=== PATIENT | female | born 1950 | race Caucasian/White ===

== ENCOUNTER 2016-12-11 05:52 | Day surgery (SDC) | payer MEDICARE, OTHER ==
[~2016-12-11] VITALS: Ht 157.5 cm; Wt 63.7 kg
[2016-12-11 06:51] VITALS: Ht 157.5 cm; Wt 63.7 kg
[2016-12-11 07:04] VITALS: BP 144/84; PULSE 61; RESP 22
[2016-12-11] MEDS ORDERED: RANI50VI3 IJ (07:04)
[2016-12-11] MEDS ORDERED: ZOC20 PO (07:04)
[2016-12-11] MEDS ORDERED: LEVO50TA83 PO (07:04)
[2016-12-11] MEDS ORDERED: IBUP50DR52 PO (07:04)
[2016-12-11] MEDS ORDERED: AZEL23SP NASAL (07:04)
[2016-12-11] MEDS ORDERED: GABA300S PO (07:04)
[2016-12-11] MEDS ORDERED: FLUT100P6 MC (07:04)
[2016-12-11] MEDS ORDERED: MIDAZOLAM 1 MG/ML 2 ML INJ ONE (07:39)
[2016-12-11] MEDS ORDERED: FENTAnyl 50 MCG/ML VIAL ONE (07:39)
[2016-12-11 08:00] VITALS: BP 121/71; PULSE 64; RESP 17
--- NOTE | 2016-12-11 11:45 | GILP ---
DATE OF PROCEDURE: 12/11/2016 NAME OF PROCEDURE: Esophagogastroduodenoscopy and biopsy. SURGEON: Clare Alas MD PREOPERATIVE DIAGNOSIS: Abdominal pain. POSTOPERATIVE DIAGNOSES: 1. Gastritis. 2. Gastric mucosal biopsies were positive for H. pylori infection. INDICATION FOR THE PROCEDURE: Ms. Caitie Lnaier is a 66-year-old female patient who had upper abdom inal pain, not responding to therapy. The patient was scheduled for endoscopic examination for furt her evaluation. The procedure and possible complications were well explained to the patient, she understood and cons ented to the procedure. DESCRIPTION OF PROCEDURE: Under the influence of fentanyl and Versed, the gastroscope was carefully introduced into the esophagus and under direct vision, it was advanced to the stomach and through t he pylorus into the duodenal bulb and descending duodenum. FINDINGS: ESOPHAGUS: The mucosa was normal. STOMACH: The patient had gastritis with erosions. Gastric mucosal biopsies were taken for H. pylor i test and it was positive. DUODENUM: Normal. The patient tolerated the procedure very well and there was no complication from the procedure. At the end of the procedure, she was awake with stable vital signs and she was discharged home to the [facility] of her family. IMPRESSION: 1. Gastritis with erosions. 2. Gastric mucosal biopsies are positive for Helicobacter pylori infection. PLAN: 1. Omeprazole 40 mg p.o. b.i.d. 2. Doxycycline 100 mg p.o. b.i.d. 3. Flagyl 500 mg p.o. b.i.d. 4. Pepto-Bismol 2 tablets p.o. q.i.d. All these 4 medications for 14 days for H. pylori infection. Dictated By: CLARE HERNANDEZ/DAVEY Conf#: [id number] DID#: [id number] CC: CLARE ALAS MD;*EndCC*
== END 2016-12-11 09:06 | disposition home or self-care (01) ==
LOC: GIL 05:52
PROVIDERS: ATTEND Internal Medicine Gastroenterology
DX: K29.60 Other gastritis without bleeding (principal); B96.81 Helicobacter pylori [H. pylori] as the cause of diseases classified elsewhere
CPT/HCPCS: 43239; 87081; J2250; J3010

== ENCOUNTER 2017-02-28 06:47 | Day surgery (SDC) | payer MEDICARE, OTHER ==
[~2017-02-28] VITALS: Ht 157.5 cm; Wt 63.2 kg
[~2017-02-28 06:47] MED LIST: AZEL23SP NASAL; FLUT100P6 MC; GABA300S PO; IBUP50DR52 PO; LEVO50TA83 PO; RANI50VI5 IJ; SIMV20TA2 PO
[2017-02-28 07:06] VITALS: Ht 157.5 cm; Wt 63.2 kg
[2017-02-28 07:31] VITALS: BP 133/78; PULSE 58; RESP 12
[2017-02-28] MEDS ORDERED: FENTAnyl 50 MCG/ML VIAL ONE (08:44)
[2017-02-28] MEDS ORDERED: MIDAZOLAM 1 MG/ML 2 ML INJ ONE ×2 (08:44)
[2017-02-28 09:07] VITALS: BP 111/77; RESP 20
--- NOTE | 2017-02-28 10:02 | GILP ---
DATE OF PROCEDURE: NAME OF PROCEDURE: Colonoscopy. SURGEON: Ruben Ryan MD PREOPERATIVE DIAGNOSIS: Screening colonoscopy. POSTOPERATIVE DIAGNOSES: 1. Redundant sigmoid, and the cecum could not be reached. 2. Diverticulosis of the colon. 3. Internal hemorrhoids. INDICATION FOR THE PROCEDURE: Mr. Caitie Lanier is a 66-year-old female patient who was scheduled f or screening colonoscopy. The procedure and possible complications were well explained to the patient. She understood and con sented to the procedure. DESCRIPTION OF PROCEDURE: Under the influence of fentanyl and Versed the colonoscope was carefully introduced in the rectum and it was advanced to the proximal part of the colon. The patient had a ve ry redundant sigmoid colon and the cecum could not be reached. The patient was noted to have divert iculosis of the colon and internal hemorrhoids. She tolerated the procedure very well and there was no complication from the procedure. At the end of the procedure she was awake with stable vital signs and she was discharged home to the care of he r family. IMPRESSION: 1. Redundant sigmoid and the cecum could not be reached. 2. Diverticulosis of the colon. 3. Internal hemorrhoids. PLAN: The patient will need elective barium enema for the evaluation of the proximal part of the co emily. Dictated By: RUBEN HERNANDEZ/DAVEY Conf#: [id number] DID#: [id number]
== END 2017-02-28 09:28 | disposition home or self-care (01) ==
LOC: GIL 06:47
PROVIDERS: ATTEND Internal Medicine Gastroenterology
DX: Z12.11 Encounter for screening for malignant neoplasm of colon (principal); K57.90 Diverticulosis of intestine, part unspecified, without perforation or abscess without bleeding; K64.8 Other hemorrhoids
CPT/HCPCS: G0121; J2250; J3010